=== PATIENT | male | born 1995 | race Caucasian/White ===

== ENCOUNTER 2022-10-07 06:50 | Emergency (ER) | payer BC ==
--- NOTE | 2022-10-07 07:04 | ED Physician Documentation ---
PD HPI CHEST PAIN - Stated complaint Stated Complaint: R SIDE INJ/CHEST/BACK PX - History obtained from History obtained from: Patient - History of Present Illness Timing - onset: How many days ago (3) Timing - duration: Days (4) Timing - details: Abrupt onset (while lifting and turning with a trash container at work.) Quality: Aching, Sharp, Pain Location: Right chest Radiation: No: Neck, Back Associated symptoms: Feeling faint / dizzy. No: Shortness of air, Nausea, Vomiting Similar symptoms before: Has not had sx before Recently seen: Not recently seen Review of Systems Cardiac: denies: Palpitations, Pedal edema, Calf pain Respiratory: denies: Dyspnea, Cough, Wheezing Skin: denies: Rash, Lesions Neurologic: denies: Focal weakness, Numbness, Near syncope PD PAST MEDICAL HISTORY - Past Medical History Cardiovascular: None Respiratory: None Endocrine/Autoimmune: None - Present Medications Home Medications: Ambulatory Orders Medication Instructions Recorded Confirmed Buspirone HCl 10/07/22 Escitalopram [Lexapro] 10/07/22 methocarbamoL [Robaxin] 500 mg PO Q6H PRN #30 tablet 10/07/22 - Allergies Allergies/Adverse Reactions: Allergies Allergy/AdvReac Type Severity Reaction Status Date / Time No Known Drug Allergies Allergy Verified 10/07/22 07:05 PD ED PE NORMAL - Vitals Vital signs reviewed: Yes - General General: Alert and oriented X 3, No acute distress, Well developed/nourished - Neck Neck: Supple, no meningeal sign, No bony TTP, No adenopathy - Cardiac Cardiac: RRR, No murmur - Respiratory Respiratory: Clear bilaterally, Other (has some chestwall tenderness anterolateral right mid ribs. NO crepitance nor deformity. ) - Abdomen Abdomen: Normal bowel sounds, Soft, Non distended, Other (he has some tenderness RUQ under the lower ribs, but without guarding nor rebound. ) Results - Vitals Vitals: Vital Signs - 24 hr 10/07/22 10/07/22 10/07/22 07:01 08:00 09:00 Temperature 36.3 C L 36.4 C L Heart Rate 72 60 61 Respiratory 21 18 16 Rate Blood Pressure 144/73 H 138/95 H 133/79 H O2 Saturation 100 98 99 Oxygen O2 Source Room air - Rads (name of study) chest CT Relevant Findings:: Prelim report reviewed (no acute injury. normal exam. ), EMP independent interpretation of test, See rad report PD Medical Decision Making - ED course Complexity details: reviewed results (no acute injury. normal exam. ), considered differential (onset pain with lifting and twisting, so presume muscular. However the pain is right chest and has pain RUQ abdomen. I feel imaging of the areas of concern (to include organs such as liver and kidney) requires CT scan and not just xray (which would be for ribs/spine only). He is tender upper abd.) ED course: no bony nor organ injury. Presume myofqscial muscle /sof ttissue strain. Still hurts a lot for it, and having pain in upper abd and not as tender as I would expect to palpation of chest wall. Departure - Departure Disposition: 01 Home, Self Care Clinical Impression: Right-sided chest pain Muscle strain of chest wall Qualifiers: Encounter type: initial encounter Qualified Code(s): S29.011A - Strain of muscle and tendon of front wall of thorax, initial encounter Condition: Stable Record reviewed to determine appropriate education?: Yes Prescriptions: methocarbamoL [Robaxin] 500 mg PO Q6H PRN #30 tablet PRN Reason: Spasms Comments: Your imaging does not show any signs of fractures or bony abnormality. No signs of lung or kidney abnormality such as swelling or inflammation etc. It does therefore sound mainly just a muscle strain of the chest wall. This can still hurt quite a bit and take days or week or 2 to get better. Initially would have you continue with some anti-inflammatory such as ibuprofen 600 mg 3 times daily with food for the next 5 to 7 days. Add methocarbamol muscle relaxant 3 times daily for spasms and stiffness. Heat and gentle stretching are good. Avoid heavy lifting today and tomorrow at least and I gave you a work note. Add Tylenol every 4-6 hours as needed for pain. Follow-up with your primary care or walk-in if not improving well enough over the next few days. I sent your prescription to the [facility] pharmacy. Forms: Activity restrictions Discharge Date/Time: 10/07/22 09:00
--- NOTE | 2022-10-07 08:31 | CT Report ---
PROCEDURE: CHEST WO INDICATIONS: right lateral ribs/chest injury at work TECHNIQUE: Noncontrast 1mm axial images were acquired from the pulmonary apices to the posterior costophrenic an gles. Axial 5 mm soft tissue kernel reconstructions were performed as well as 8 mm axial MIP and cor onal and sagittal 5 mm reformations. For radiation dose reduction, the following was used: automate d exposure control, adjustment of mA and/or kV according to patient size. COMPARISON: None. FINDINGS: Image quality: Excellent. Lungs and pleura: No consolidation. No pleural effusions. No pneumothorax. No suspicious pulmonary n odules which require follow up. Juxtapleural nodules with smooth margins, most consistent with intra pulmonary lymph nodes. Mediastinum: Heart size is normal. No pericardial effusion. No large vessel abnormality. No mediastin al adenopathy by size criteria. Chest wall and lower neck: Thyroid is unremarkable. No axillary or supraclavicular adenopathy by size . Gynecomastia. Bones: No aggressive osseous abnormality. Upper Abdomen: Unremarkable. IMPRESSION: No acute bony abnormality. Reviewed by: Lucas Parra on 10/07/2022 8:29 AM PDT Approved by: Lucas Parra on 10/07/2022 8:29 AM PDT Station ID: [id number]
[2022-10-07 09:05] VITALS: BP 133/79
== END 2022-10-07 09:00 | disposition home or self-care (01) ==
LOC: ED 06:50
DX: R07.9 Chest pain, unspecified (principal); S29.011A Strain of muscle and tendon of front wall of thorax, initial encounter; X50.1XXA Overexertion from prolonged static or awkward postures, initial encounter; Y99.0 Civilian activity done for income or pay
CPT/HCPCS: 99284